=== PATIENT | male | born 1940 | race Caucasian/White ===

== ENCOUNTER → 2017-01-29 | Day surgery (SDC) | payer MEDICARE ==
[~2017-01-29] VITALS: Ht 172.7 cm; Wt 79.5 kg
[~2017-01-29] MED LIST: AMLO5TAB2 PO; ASPI81TA23 PO; BUPIVACAINE HCL PF 0.5% 30 ML VIAL ONE; CALC600T4 PO; CEPH-459 PO; CHLORHEXIDINE GLUCONATE 2 % 1 PACK (2 CLOTHS) TOPICAL PRN; INSULIN HUMAN REGULAR 1,000 UNITS/10 ML VIAL SQ PRN; LACTATED RINGER'S 1000 ML IV PRN; LIDOCAINE HCL 2% 50 ML VIAL ONE; METOPROLOL TARTRATE 25 MG TAB PO PRN; NEOMYCIN/POLYMYXIN 1 ML G.U. IRRIGANT ONE; NORC5TAB PO; POVIDONE IODINE 5% (ANTISEPSIS KIT) 4 APPLICATIONS EACH NARE PRN; PRED2.5T PO; SODIUM CHLORID 0.9% 500 ML IV PRN; VITA1CAP7 PO; VITA20003 PO; ceFAZolin 1,000 MG/NS 100 ML IV SCH
[2017-01-29 13:40] VITALS: TEMP 98
[2017-01-29 14:30] VITALS: BP 171/90; PULSE 52; RESP 14; O2SAT 98
--- NOTE | 2017-01-30 08:16 | MP ---
cc: MARQUIS DUKE III, M.D. DATE OF SURGERY 01/29/2017 PREOPERATIVE DIAGNOSIS Right fifth finger mass. PROCEDURE Right fifth finger mass excisional biopsy. SURGEON Marquis Duke III, MD PROCEDURE The patient was brought to the operating room, placed supine on the operating table. After the correct site and side of surgery were verified by members of each team in the room multiple times including the patient and myself and after adequate preop markings and preoperative written consent were verified by every one and after adequate preoperative time-out was performed to every ones satisfaction, after adequate IV sedation was achieved, the right extremity was prepped and draped in the traditional sterile surgical fashion. The usual mixture of local anesthetic was infiltrated dorsally between the fourth and fifth fingers. The limb was exsanguinated with a gentle Hever wrap and a highly placed well-padded axillary tourniquet was inflated to 200 mmHg for approximately 17 minutes. A longitudinally oriented incision dorsally and radially over the mass at the base of the fifth finger was made and carried down through skin and subcutaneous tissue. Blunt dissection was then performed and a large fatty tumor was then excised in its entirety and passed off the field as a specimen. The neurovascular bundle was identified and found be deep and intact and non-compromised. There is no other anatomic abnormalities. A thorough irrigation with saline was performed. Bipolar electrocautery was used sparingly as needed. The wound was closed using running 5-0 nylon suture and the hand and arm were thoroughly cleansed and dried. Betadine Adaptic dressings was applied on top of the wound followed by a bulky soft dressing. The axillary tourniquet was released and the hand and all the fingers including the small finger became immediately soft, pink, and warm and there was no evidence of any bleeding. Hemostasis was present. No hematoma formed. The patient was transported to the Post Anesthesia Care Unit awake and in stable condition at the end of the case. The sponge, needle and instrument counts were correct at the end of the case as reported by nurses in the room. MD SUMMER Mills III/GLORAI /2:42 PM /8:06 AM
== END | disposition home or self-care (01) ==
LOC: PHSDC 10:21
PROVIDERS: ATTEND Orthopaedic Surgery Hand Surgery
DX: R22.31 Localized swelling, mass and lump, right upper limb (principal)
CPT/HCPCS: 01810; 26160; 88304; J0690; J3010; J7120; 88305